=== PATIENT | female | born 1980 | race Two or more races ===

== ENCOUNTER 2020-09-21 17:59 | Emergency (ER) | payer MEDICAID ==
[~2020-09-21] VITALS: Ht 170.2 cm; Wt 77.1 kg
[2020-09-21 18:16] VITALS: BP 119/79
== END 2020-09-21 20:15 | disposition left against medical advice (07) ==
LOC: ER 18:16
DX: J02.9 Acute pharyngitis, unspecified (principal); R05 Cough; Z53.21 Procedure and treatment not carried out due to patient leaving prior to being seen by health care provider

== ENCOUNTER 2023-08-28 11:25 | Emergency (ER) | payer SELFPAY ==
[~2023-08-28] VITALS: Ht 170.2 cm; Wt 75.5 kg
[2023-08-28 13:57] VITALS: BP 121/81; PULSE 98; RESP 15; TEMP 98.1; O2SAT 99
[2023-08-28] MEDS ORDERED: TETANUS-DIPTH-ACEL PERTUSSIS 0.5ML SYR Tdap IM ONE (14:15)
[2023-08-28] MEDS ORDERED: KETOROLAC TROMETH 60MG/2ML VIAL IM ONE (14:15)
[2023-08-28] MEDS ORDERED: AUG875T PO (15:12)
[2023-08-28] MEDS ORDERED: IBUP1TAB5 PO (15:12)
[2023-08-28] MEDS ORDERED: CYCL-839 PO (15:12)
[2023-08-28] MEDS ORDERED: LIDOCAINE 1% HCL (LOCAL ANESTH.) INJ 20ML MDV IJ ONE (15:30)
== END 2023-08-28 16:23 | disposition home or self-care (01) ==
LOC: ER 11:25
DX: S81.811A Laceration without foreign body, right lower leg, initial encounter (principal); F17.210 Nicotine dependence, cigarettes, uncomplicated; F15.90 Other stimulant use, unspecified, uncomplicated; Z79.899 Other long term (current) drug therapy; Z98.890 Other specified postprocedural states; W54.0XXA Bitten by dog, initial encounter; Y93.89 Activity, other specified; Y92.89 Other specified places as the place of occurrence of the external cause; Y99.8 Other external cause status
CPT/HCPCS: 12001; 73590; 90471; 90715; 96372; 99284; J1885; J2001